=== PATIENT | female | born 1950 | race American Indian/Alaskan Native ===

== ENCOUNTER 2017-01-20 07:48 | Day surgery (SDC) | payer MEDICARE ==
[2017-01-13 13:59] VITALS: BMI 32.9
--- NOTE | 2017-01-20 11:33 | CP.SDSHP ---
Same Day Surgery H & P - History Proposed Procedure: US guided FNA of left parotid mass Pre-Op Diagnosis: left parotid mass - Allergies Allergies: Allergies aspirin Allergy (Severe, Verified 01/13/17 13:59) "I BLACKOUT" - Physical Exam Vital Signs: Vital Signs 01/20/17 08:17 Temperature 97.6 F Pulse Rate 79 Respiratory 20 Rate Blood Pressure 129/77 O2 Sat by Pulse 96 Oximetry Mental Status: Alert & Oriented x3 Neuro: WNL Heart: WNL Lungs: WNL - Impression Impression: Pt with firm, visible left parotid mass. Plan US guided FNA of left parotid mass Pt. Evaluated Today:Candidate for Anesthesia & Procedure: No - Date & Time Date: 01/20/17 Time: 11:15 Short Stay Discharge - Short Stay Discharge Admitting Diagnosis/Reason for Visit: L PAROTID MASS Disposition: HOME/ ROUTINE
--- NOTE | 2017-01-20 11:34 | PCM.SURG1 ---
Surgeon's Initial Post Op Note - Surgeon's Notes Surgeon: John Carlton MD Assembler Musical Instruments: NONE Type of Anesthesia: Local Pre-Operative Diagnosis: left parotid mass Operative Findings: 1.5 cm solid left parotid mass. Post-Operative Diagnosis: left parotid mass Operation Performed: US guided FNA of left parotid mass Specimen/Specimens Removed: 25 g FNA x 4 passes Estimated Blood Loss: EBL {In ML}: 1 Blood Products Given: N/A Drains Used: No Drains Post-Op Condition: Good Date of Surgery/Procedure: 01/20/17 Time of Surgery/Procedure: 11:30
--- NOTE | 2017-01-20 11:48 | US ---
PROCEDURE: Date of procedure: 01/20/2017 Procedure: Ultrasound-guided FNA of left parotid mass. Ultrasound guidance for biopsy, [address] 1% Lidocaine 3 cc HISTORY: Left parotid mass. TECHNIQUE: Following informed consent and procedure time-out, limited ultrasound patient's left neck demonstrates a left parotid mass which is complex and hypoechoic. The mass measures 1.5 centimeters. After the patient neck was prepped and draped in the usual sterile fashion and the skin anesthetized with lidocaine, ultrasound guided FNA was performed. A 25 g needle was advanced under US guidance into the left parotid mass. A total of 4 passes were made. Specimen were sent for routine histology. A post biopsy ultrasound showed no hematoma IMPRESSION: Ultrasound-guided FNA of left parotid mass.
[2017-01-20 12:46] VITALS: BP 152/79; PULSE 70; RESP 15; TEMP 97.5; O2SAT 97
== END 2017-01-20 12:05 | disposition home or self-care (01) ==
LOC: C.SPRAD 07:48
PROVIDERS: ATTEND Radiology Vascular & Interventional Radiology
DX: D37.030 Neoplasm of uncertain behavior of the parotid salivary glands (principal)

== ENCOUNTER 2017-03-16 06:36 | Day surgery (SDC) | payer MEDICARE ==
[2017-01-13 13:59] VITALS: BMI 32.9
[2017-03-16 07:28] LABS: BASO % 0.5 % (0.0-2.0); EOS # 0.3 K/uL (0.0-0.7); EOS % 3.2 % (0.0-4.0); HEMATOCRIT 35.9 % (34.0-47.0); LYMPH # 1.7 K/uL (1.0-4.3); LYMPH % 20.5 % (20.0-40.0); MEAN CELL VOLUME 92.7 fL (81.0-99.0); MEAN CORPUSCULAR HEMOGLOBIN 31.6 pg (27.0-31.0); MEAN CORPUSCULAR HGB CONC 34.1 g/dL (33.0-37.0); MEAN PLATELET VOLUME 8.2 fL (7.2-11.7); MONO # 0.5 K/uL (0.0-0.8); NRBC % 0.1 % (0.0-2.0); RED CELL DISTRIBUTION WIDTH 12.9 % (11.5-14.5); WHITE BLOOD COUNT 8.3 K/uL (4.8-10.8)
[2017-03-16 07:32] LABS: CHLORIDE 101 mmol/L (98-107); POTASSIUM 3.5 mmol/L (3.6-5.2); SODIUM 142 mmol/L (132-148)
[2017-03-16 07:33] LABS: INR 1.1
[2017-03-16 07:34] LABS: GFR AFRICAN-AMERICAN > 60
[2017-03-16 07:35] LABS: BLOOD UREA NITROGEN 8 mg/dL (7-17); CARBON DIOXIDE 29 mmol/L (22-30); GLUCOSE,RANDOM 95 mg/dL (65-105)
[2017-03-16 08:24] VITALS: TEMP 97.3
[2017-03-16] MEDS ORDERED: Acetaminophen-Codeine 300/30 mg Tab PO PRN (08:58)
[2017-03-16] MEDS ORDERED: Dextrose 5%/0.45% NS 1,000 ML IV SCH (09:00)
[2017-03-16] MEDS ORDERED: Lactated Ringer's 500 ML IV ONE (09:15)
[2017-03-16] MEDS ORDERED: Propofol 10 mg/ml Inj (20 ML) ONE (09:19)
[2017-03-16] MEDS ORDERED: ceFAZolin IV 1 gm in Dextrose 2 GM/100 ML BAG IVPB ONE (09:20)
[2017-03-16] MEDS ORDERED: Racepinephrine 2.25% Inhal Soln 0.5 ML UD NEB ONE (09:53)
[2017-03-16] MEDS ORDERED: Dexamethasone 4 mg/1 ml IVP PRN (09:53)
[2017-03-16] MEDS ORDERED: Albuterol 0.083% Inhal Sol (2.5 mg/3 mL) UD INH PRN (09:53)
[2017-03-16] MEDS ORDERED: HYDROmorphone 0.5 mg/0.5 ml ISec IVP PRN (09:53)
[2017-03-16] MEDS ORDERED: Racepinephrine 2.25% Inhal Soln 0.5 ML UD ONE (09:53)
[2017-03-16 11:25] VITALS: BP 125/69; PULSE 68; RESP 18; O2SAT 96
--- NOTE | 2017-03-16 19:58 | OP ---
PROCEDURE DATE: 03/16/2017 PREOPERATIVE DIAGNOSIS: Right vocal cord lesion. POSTOPERATIVE DIAGNOSIS: Right vocal cord lesion. PROCEDURE: Micro direct laryngoscopy with removal of right vocal cord lesion. SIGNIFICANT FINDINGS: Right vocal cord lesion. DESCRIPTION OF PROCEDURE: The patient was brought into the room, placed in supine position, and anesthesia was initiated through an ET tube. Shoulder roll was placed and neck extended. Tooth guard was placed over the upper teeth in order to protect them and was removed at the end of the case. The patient was draped in the usual manner. Direct laryngoscope was inserted in to the oral cavity and was passed to the oropharynx and hypopharynx. The base of tongue, vallecula, epiglottis, AE folds, false cords, true cords, piriform sinuses, pharyngeal moran were brought in to view. Vocal cord lesion was noted on the right vocal cord anteriorly and another was noted on the left one, which was inferior to the right one. This is why it was not noticed in the office flexible laryngoscopy examination. The right vocal region was viewed using a direct laryngoscope. The laryngoscope was suspended on [place] wall insulation sprayer the usual manner. Microscope was brought into position to view the right vocal cord lesion. The lesion was grabbed using micro instruments and pulled medially. Micro scissors were used to dissect the lesion off the mucosa leaving as much vocal cord mucosa as possible. Bleeding was controlled using cold water irrigation. The microscope was then taken out of position. The direct laryngoscope was taken off suspension and they removed. The patient was then taken off from anesthesia and taken to recovery room in stable manner. Ruddy Knox MD JI
== END 2017-03-16 12:19 | disposition home or self-care (01) ==
LOC: C.SDS 06:36
PROVIDERS: ATTEND Otolaryngology
DX: J38.1 Polyp of vocal cord and larynx (principal)
CPT/HCPCS: 31300; 36415; 80048; 85025; 85610; 85730; 88305; J0690; J1170; J2704; J3010; J7120